=== PATIENT | male | born 1945 | race Caucasian/White ===

== ENCOUNTER 2021-08-07 07:06 | Day surgery (SDC) | payer MEDICARE, BC, SELFPAY ==
[2021-08-07] MEDS: KETOROLAC OPHTH 0.5% 1 DROP EYE-LEFT ×3 (07:25→07:38)
[2021-08-07] MEDS: TETRACAINE 0.5% OPHTH 1 DROP EYE-LEFT ×2 (07:26→07:35)
[2021-08-07] MEDS: ETHYL CHLORIDE 116 ML SPRAY 1 APPLIC TOPICAL (07:40)
[2021-08-07] MEDS: SODIUM CHLORIDE 0.9 % (FLUSH) 10 ML SYRINGE IVF (07:40)
[2021-08-07 07:42] VITALS: BP 139/69; PULSE 56; RESP 16; TEMP 36.4; O2SAT 95; BMI 25.2
--- NOTE | 2021-08-07 07:57 | SUR.PREOP ---
0715: The eye drops brought by the patient (Ketorolac and Prednisolone) are examined and I have determined they are labeled by the patient's pharmacy for this patient as prescribed by the surgeon. The bottles are intact, recently obtained and appear to be correct.
[2021-08-07] MEDS: TETRACAINE 0.5% OPHTH 2 DROP EYE-LEFT (08:02)
[2021-08-07] MEDS: BALANCED SALT IRRIG SOLN 15 ML EYE-LEFT (08:02)
--- NOTE | 2021-08-07 08:58 | W.ANESCHARGE ---
Anesthesia Charges Start Date/Time Anesthesia Start Date: 08/07/21 Anesthesia Start Time: 08:08 Stop Date/Time Anesthesia Stop Date: 08/07/21 Anesthesia Stop Time: 08:55 Summary Emergency: No Extremes of Age: Over 69-CPT 43576
[2021-08-07 09:00] VITALS: BP 147/74; PULSE 57; RESP 16; TEMP 36.5
--- NOTE | 2021-08-07 10:23 | W.ANESCHARGE ---
Anesthesia Charges Start Date/Time Anesthesia Start Date: 08/07/21 Anesthesia Start Time: 08:08 Stop Date/Time Anesthesia Stop Date: 08/07/21 Anesthesia Stop Time: 08:55 Summary Emergency: No Extremes of Age: Over 69-CPT 66970
--- NOTE | 2021-08-07 15:32 | PM.PROC ---
Procedure Note Will [facility] bill your pro fee for this procedure?: Yes Procedure: SURGEON: Marcy San MD PREOPERATIVE DIAGNOSIS: 1. Nuclear sclerotic cataract, left eye. 2. Miosis, left eye. POSTOPERATIVE DIAGNOSIS: 1. Nuclear sclerotic cataract, left eye. 2. Miosis, left eye. NAME OF OPERATION: Phacoemulsification of cataract with posterior chamber intraocular lens implantation in the left eye with pupilloplasty. ANESTHESIA: Topical. ESTIMATED BLOOD LOSS: Less than 2 cc. COMPLICATIONS: None. PATHOLOGY SPECIMEN: None. INDICATIONS: See consult note for details. The risks, benefits and alternatives of the procedure were explained to the patient, who elected to proceed and signed informed consent to do so. PROCEDURE: The patient was brought to the pre-holding area where the left eye was identified as the operative eye. I placed my initials above this eye. The patient received two sets of eye drops every five minutes consisting of 0.5% tetracaine, 1% cyclopentolate, 2.5% phenylephrine, and 0.5% ketorolac. The patient was then brought to the operating room where the left eye was again identified as the operative eye. The eye was prepped with Betadine and draped in the usual sterile ophthalmic fashion. A #15 super-sharp blade was used to create a paracentesis site. 1% non-preserved intracameral lidocaine was injected into the anterior chamber. Viscoat was injected into the anterior chamber. A 2.4 mm keratome was used to create a three-plane self-sealing incision 1 mm anterior to the temporal limbus. A #15 super-sharp blade was used to create four additional paracentesis sites. Four Grieshaber iris hooks were placed in order to stretch the iris. A cystotome was used to create an anterior capsular leaflet. The Utrata forceps were used to extend this to form a continuous curvilinear capsulorrhexis. Hydrodissection was performed. The cataract was removed with phacoemulsification using the [id number] technique. The irrigation and aspiration tip was used to remove the remaining cortex. Healon was injected into the capsular bag. An LU ZCB00 intraocular lens of 23.0 diopters was injected into the capsular bag. The four Grieshaber iris hooks were removed. The irrigation and aspiration tip was used to remove the remaining viscoelastic. Miostat was injected into the anterior chamber. Balanced salt solution on a cannula was used to hydrate the wound, and the wound was found to be watertight. The pupil was noted to be round. DISPOSITION: The patient was taken to the recovery room and discharged to home in stable condition. The patient was instructed to call me or go to the emergency department with any sudden change, including dramatic loss of vision, severe pain in the eye or eyebrow region, nausea, or vomiting. The patient will follow up in the clinic tomorrow morning.
--- NOTE | 2021-08-20 15:59 | SUR.PREOP ---
This RN is closing the chart due to admitting RN out for extended period. End time based on patient time into OR.
== END 2021-08-07 09:31 | disposition home or self-care (01) ==
PROVIDERS: PCP Family Medicine; Visit Provider Ophthalmology
PROC: (CPT 66982; principal; 2021-08-07 07:00)
DX: H25.12 Age-related nuclear cataract, left eye (principal); H57.03 Miosis
CPT/HCPCS: 66982; 142; 99100; A9270; J2250; J3010; V2632

== ENCOUNTER 2021-08-21 06:51 | Day surgery (SDC) | payer MEDICARE, BC, SELFPAY ==
[2021-08-21] MEDS: TETRACAINE 0.5% OPHTH 1 DROP EYE-RIGHT ×2 (07:00→07:18)
[2021-08-21] MEDS: KETOROLAC OPHTH 0.5% 1 DROP EYE-RIGHT ×3 (07:05→07:30)
[2021-08-21 07:25] VITALS: BMI 25.2
[2021-08-21 07:29] VITALS: BP 141/70; PULSE 53; RESP 16; TEMP 36.3
[2021-08-21] MEDS: BALANCED SALT IRRIG SOLN 15 ML EYE-RIGHT (08:18)
[2021-08-21] MEDS: TETRACAINE 0.5% OPHTH 2 DROP EYE-RIGHT (08:19)
[2021-08-21 08:51] VITALS: BP 186/89; PULSE 60; RESP 16; TEMP 36.3; O2SAT 96
--- NOTE | 2021-08-21 08:53 | W.ANESCHARGE ---
Anesthesia Charges Start Date/Time Anesthesia Start Date: 08/21/21 Anesthesia Start Time: 08:04 Stop Date/Time Anesthesia Stop Date: 08/21/21 Anesthesia Stop Time: 08:51 Summary Emergency: No Extremes of Age: Over 69-CPT 38466
--- NOTE | 2021-08-21 09:02 | SUR.PREOP ---
The eye drops brought by the patient (Ketorolac and Prednisolone) are examined and I have determined they are labeled by the patient's pharmacy for this patient as prescribed by the surgeon. The bottles are intact, recently obtained and appear to be correct.
--- NOTE | 2021-08-21 10:02 | W.ANESCHARGE ---
Anesthesia Charges Start Date/Time Anesthesia Start Date: 08/21/21 Anesthesia Start Time: 08:04 Stop Date/Time Anesthesia Stop Date: 08/21/21 Anesthesia Stop Time: 08:51 Summary Emergency: No Extremes of Age: Over 69-CPT 08521
--- NOTE | 2021-08-21 12:23 | PM.PROC ---
Procedure Note Will [facility] bill your pro fee for this procedure?: Yes Procedure Description: SURGEON: Marcy San MD PREOPERATIVE DIAGNOSIS: 1. Nuclear sclerotic cataract, right eye. 2. Miosis, right eye. POSTOPERATIVE DIAGNOSIS: 1. Nuclear sclerotic cataract, right eye. 2. Miosis, right eye. NAME OF OPERATION: Phacoemulsification of cataract with posterior chamber intraocular lens implantation in the right eye with pupilloplasty. ANESTHESIA: Topical. ESTIMATED BLOOD LOSS: Less than 2 cc. COMPLICATIONS: None. PATHOLOGY SPECIMEN: None. INDICATIONS: See consult note for details. The risks, benefits and alternatives of the procedure were explained to the patient, who elected to proceed and signed informed consent to do so. PROCEDURE: The patient was brought to the pre-holding area where the right eye was identified as the operative eye. I placed my initials above this eye. The patient received eye drops consisting of 0.5% tetracaine, 1% tropicamide, 10% phenylephrine, and 0.5% ketorolac. The patient was then brought to the operating room where the right eye was again identified as the operative eye. The eye was prepped with Betadine and draped in the usual sterile ophthalmic fashion. A #15 super-sharp blade was used to create a paracentesis site. 1% non-preserved intracameral lidocaine was injected into the anterior chamber. Endocoat was injected into the anterior chamber. A 2.4 mm keratome was used to create a three-plane self-sealing incision 1 mm anterior to the temporal limbus. A #15 super-sharp blade was used to create four additional paracentesis sites. Four Grieshaber iris hooks were placed in order to stretch the iris. A cystotome was used to create an anterior capsular leaflet. The Utrata forceps were used to extend this to form a continuous curvilinear capsulorrhexis. Hydrodissection was performed. The cataract was removed with phacoemulsification using the [id number] technique. The irrigation and aspiration tip was used to remove the remaining cortex. Healon was injected into the capsular bag. An LU ZCB00 intraocular lens of 23.5 diopters was injected into the capsular bag. The four Grieshaber iris hooks were removed. The irrigation and aspiration tip was used to remove the remaining viscoelastic. Miostat was injected into the anterior chamber. Balanced salt solution on a cannula was used to hydrate the wound, and the wound was found to be watertight. The pupil was noted to be round. DISPOSITION: The patient was taken to the recovery room and discharged to home in stable condition. The patient was instructed to call me or go to the emergency department with any sudden change, including dramatic loss of vision, severe pain in the eye or eyebrow region, nausea, or vomiting. The patient will follow up in the clinic tomorrow morning. Surgeon: Marcy San MD
== END 2021-08-21 09:15 | disposition home or self-care (01) ==
PROVIDERS: PCP Family Medicine; Visit Provider Ophthalmology
PROC: (CPT 66982; principal; 2021-08-21 06:45)
DX: H25.11 Age-related nuclear cataract, right eye (principal); H57.03 Miosis
CPT/HCPCS: 66982; 00142; 99100; A9270; J2250; J3010; V2632

== ENCOUNTER 2021-10-18 13:00 | Outpatient (RCR) | payer MEDICARE, BC, SELFPAY ==
--- NOTE | 2021-11-06 12:50 | URNOTE ---
Request received for authorization for leuprolide ([id number]). Prior authorization is not required as services are based on medical necessity and follow Medicare guidelines.
== END 2022-01-07 14:34 | disposition home or self-care (01) ==
PROVIDERS: PCP Family Medicine; Referring Provider Family Medicine; Visit Provider Family Medicine
DX: M54.50 Low back pain, unspecified (principal); M25.552 Pain in left hip; Z51.89 Encounter for other specified aftercare
CPT/HCPCS: 97110; 97140; 97161; 97162

== ENCOUNTER 2021-11-13 11:24 | Outpatient (RCR) | payer MEDICARE, BC, SELFPAY | END 2022-05-12 23:59 | disposition home or self-care (01) | LOC: CCIC 11:24 | PROVIDERS: PCP Family Medicine; Referring Provider Family Medicine; Visit Provider Clinical Nurse Specialist | DX: Z51.11 Encounter for antineoplastic chemotherapy (principal); C61 Malignant neoplasm of prostate | CPT/HCPCS: 96401; J9217 ==

== ENCOUNTER 2022-08-27 20:43 | Emergency (ER) | payer MEDICARE, BC, SELFPAY ==
[2022-08-27] VITALS (16 sets, daily range): BP systolic 135–157; BP diastolic 70–78; PULSE 67–96; RESP 16; TEMP 36.7; O2SAT 91–96; BMI 24.9
--- NOTE | 2022-08-27 21:03 | ED.GENADULT ---
HPI - General Adult General Chief complaint: Allergic Reaction Stated complaint: Suspected reaction to amoxicillin--swollen tongue Time Seen by Provider: 08/27/22 20:53 History of Present Illness HPI narrative: 1600 first dose amoxicillin for ear infx. 0 itchy hands. 1999 - throat and tongyue swelling. does take lisinopril . pt able to swallow own spit, states no trouble breathing. talking clear 76-year-old man presenting to the emergency department with concern of allergic reaction. Does have a long history apparently of sinus disease but is not having any sinus pain. He actually has not had any more ear pain as of last night but still was feeling plugged and went to a clinic appointment today. Thought maybe it might be wax buildup. Was diagnosed with a left-sided otitis media per their report and initiated on amoxicillin. Had his 1st dose of amoxicillin at around 5 hours ago. Within the hour started to have itchy hands and then sensation of throat and tongue swelling in particular. Does take lisinopril. Able to maintain his own secretions. He is not having difficulty breathing. When I walk in the room I note some affected speech which says has definitely improved over the last hour. She did give him prior to arrival 50 mg of diphenhydramine. Was not known to have a penicillin or amoxicillin allergy but not sure has received amoxicillin in the past Related Data Home Medications Medication Instructions Recorded Confirmed PSYILLIUM 1 tsp PO DAILY PRN 08/06/21 11/13/21 acetaminophen 500 mg tablet 1,000 mg PO Q8H PRN 08/06/21 11/13/21 (Tylenol Extra Strength) amlodipine 10 mg tablet 10 mg PO DAILY 08/06/21 11/13/21 aspirin 81 mg tablet,delayed 81 mg PO DAILY 08/06/21 11/13/21 release atorvastatin 20 mg tablet (Lipitor) 20 mg PO DAILY 08/06/21 11/13/21 bupropion HCl 300 mg 24 hr tablet, 300 mg PO QAM 08/06/21 11/13/21 extended release calcium polycarbophil 625 mg 625 mg PO DAILY 08/06/21 11/13/21 tablet (Fiber (calcium polycarbophil)) coenzyme Q10 100 mg capsule 200 mg PO DAILY 08/06/21 11/13/21 (CoQ-10) duloxetine 60 mg capsule,delayed 60 mg PO DAILY 08/06/21 11/13/21 release furosemide 20 mg tablet 20 mg PO QAM 08/06/21 11/13/21 lansoprazole 30 mg capsule,delayed 30 mg PO .COMPLEX 08/06/21 11/13/21 release lisinopril 40 mg tablet 40 mg PO DAILY 08/06/21 11/13/21 lorazepam 1 mg tablet 1 mg PO Q4H PRN 08/06/21 11/13/21 mirabegron 25 mg tablet,extended 25 mg PO DAILY 08/06/21 11/13/21 release 24 hr naproxen 250 mg tablet 250 mg PO Q12H 08/06/21 11/13/21 nitroglycerin 0.4 mg sublingual 0.4 mg sublingual Q5M PRN 08/06/21 11/13/21 tablet polyethylene glycol 3350 17 17 g PO DAILY 08/06/21 11/13/21 gram/dose oral powder (Miralax) potassium citrate 10 mEq (1,080 10 meq PO BID 08/06/21 11/13/21 mg) tablet,extended release (Urocit-K 10) sildenafil 25 mg tablet 25 - 50 mg PO DAILY PRN 08/06/21 11/13/21 trazodone 50 mg tablet 50 mg PO HS PRN sleep 08/06/21 11/13/21 bicalutamide 50 mg tablet mg 11/13/21 Previous Rx's Medication Instructions Recorded prednisone 20 mg tablet 20 mg PO BID 3 days #6 tabs 08/27/22 Allergies Allergy/AdvReac Type Severity Reaction Status Date / Time amoxicillin Allergy Intermediate Swelling Verified 08/27/22 23:17 of Lip/Tongue/Throat bee venom protein (honey bee) Allergy Unknown Verified 11/13/21 11:38 Review of Systems Status of ROS: Reports: 6 or more systems reviewed and unremarkable except as noted in History and below [facility] Medical History Atypical syncope ?R55 - Syncope and collapse (ICD-10) Fracture, thoracic vertebra, compression ?S22.000A - Wedge compression fracture of unspecified thoracic vertebra, initial encounter for closed fracture (ICD-10) H/O placement of stent in anterior descending branch of left coronary artery ?Z95.5 - Presence of coronary angioplasty implant and graft (ICD-10) Left lower quadrant abdominal mass ?R19.04 - Left lower quadrant abdominal swelling, mass and lump (ICD-10) Left lower quadrant pain ?R10.32 - Left lower quadrant pain (ICD-10) Fracture of unspecified part of neck of left femur, initial encounter for closed fracture ?S72.002A - Fracture of unspecified part of neck of left femur, initial encounter for closed fracture (ICD-10) Bradycardia ?R00.1 - Bradycardia, unspecified (ICD-10) Marijuana use ?F12.90 - Cannabis use, unspecified, uncomplicated (ICD-10) Generalized anxiety disorder ?F41.1 - Generalized anxiety disorder (ICD-10) Dyslipidemia ?E78.5 - Hyperlipidemia, unspecified (ICD-10) ABLA (acute blood loss anemia) ?D62 - Acute posthemorrhagic anemia (ICD-10) Psychophysiologic insomnia ?F51.04 - Psychophysiologic insomnia (ICD-10) Social anxiety disorder ?F40.10 - Social phobia, unspecified (ICD-10) Depression, major, recurrent, moderate ?F33.1 - Major depressive disorder, recurrent, moderate (ICD-10) Arteriosclerosis of coronary artery ?I25.10 - Atherosclerotic heart disease of [place] coronary artery without angina pectoris (ICD-10) Hypertension ?I10 - Essential (primary) hypertension (ICD-10) Other specified disorders of nose and nasal sinuses ?J34.89 - Other specified disorders of nose and nasal sinuses (ICD-10) Other abnormal glucose ?R73.09 - Other abnormal glucose (ICD-10) Hyperlipidemia ?E78.5 - Hyperlipidemia, unspecified (ICD-10) Gout, unspecified ?M10.9 - Gout, unspecified (ICD-10) Gastro-esophageal reflux ?K21.9 - Gastro-esophageal reflux disease without esophagitis (ICD-10) Encounter for immunization ?Z23 - Encounter for immunization (ICD-10) Diverticulosis of large intestine without perforation or abscess without bleeding ?K57.30 - Diverticulosis of large intestine without perforation or abscess without bleeding (ICD-10) Surgical History H/O repair of right rotator cuff ?Z98.890 - Other specified postprocedural states (ICD-10) History of left hip replacement ?Z96.642 - Presence of left artificial hip joint (ICD-10) Hx of anterior cruciate ligament tear reconstruction ?Z98.890 - Other specified postprocedural states (ICD-10) H/O resection of small bowel ?Z90.49 - Acquired absence of other specified parts of digestive tract (ICD-10) History of coronary angioplasty ?Z98.61 - Coronary angioplasty status (ICD-10) Social History Smoking Status: Former smoker What tobacco products do you use: cigarettes Smoking quit date/years: >15 years ago How often do you have a drink containing alcohol: monthly or less How many standard drinks containing alcohol do you have on a typical day: 1 or 2 How often do you have six or more drinks on one occasion: Never AUDIT-C Alcohol total score: 1 Non-prescribed substance use: marijuana (any form) Non-prescribed substance use details: DAILY Caffeine: Yes Exam Narrative: Exam Narrative: Pleasant. NAD. Affected speech when I 1st see him. Almost sounds like a lateral lisp or like the tongue is thick frankly. Otherwise is breathing easily. There is no stridor. Lungs appear to be clear. Oropharynx is moist mild erythema in the soft palate with a thick tongue-he does deny that he has sleep apnea. It is a little difficult initially to visualized soft palate. Is no facial swelling erythema or tenderness though he does sound congested. There is no reproducible sikh pain or appreciable swelling or redness. No TMJ area pain. The left TM has some central erythema but otherwise the TM is pearly sung and transparent. I do not appreciate distension there might be a little retraction now. The right TM is also normal. More cerumen in the canal but I do not appreciate inflammatory changes. No pain to movement of the pinna or tragus bilaterally. Const: Vital Signs, click to edit/add: Vital Signs - 24 hr 08/27/22 20:54 08/27/22 21:11 Temperature 98.1 F Pulse Rate 77 Pulse Rate [Left P ulse Oximeter] 67 Respiratory Rate 16 Blood Pressure [Ri ght Upper Arm] 157/78 H Pulse Oximetry 96 93 Oxygen Delivery Me thod Room Air Documenting provider has reviewed patient's vital signs: yes Course Vital Signs Vital signs: Initial Vital Signs Temperature 98.1 F 08/27/22 20:54 Temperature Source Temporal Artery Scan 08/27/22 20:54 Pulse Rate 67 08/27/22 20:54 Respiratory Rate 16 08/27/22 20:54 Blood Pressure 157/78 H 08/27/22 20:54 Blood Pressure Mean 104 08/27/22 20:54 Blood Pressure Position Sitting 08/27/22 20:54 Pulse Oximetry 96 08/27/22 20:54 Oxygen Delivery Method Room Air 08/27/22 20:54 Vital Signs Temperature 98.1 F 08/27/22 20:54 Pulse Rate 67 08/27/22 20:54 Respiratory Rate 16 08/27/22 20:54 Blood Pressure 157/78 H 08/27/22 20:54 Pulse Oximetry 96 08/27/22 20:54 Oxygen Delivery Method Room Air 08/27/22 20:54 Temperature 98.1 F 08/27/22 20:54 Pulse Rate 73 08/27/22 23:15 Respiratory Rate 16 08/27/22 20:54 Blood Pressure 135/76 08/27/22 23:02 Pulse Oximetry 93 08/27/22 23:15 Oxygen Delivery Method Room Air 08/27/22 20:54 Medical Decision Making MDM Narrative Medical decision making narrative: Does not seem to be too affected at this time. Does not seem to be a traumatic event. I do feel there is some affect perhaps in throat and tongue that would benefit from monitoring and fluids and steroids. I do not see need for amoxicillin at this time given no facial pain or evidence of an ear infection. IV was established given a L normal saline and Solu-Medrol. Monitored the in the emergency department with general improvement of his symptoms. See patient discharge plan Discharge Plan Discharge Clinical Impression: Sinus congestion, Allergic reaction Patient Disposition: Home w/ Parent or Adult Condition: Improved Instructions: General Allergic Reaction (ED) Additional Instructions: Stay well-hydrated. If tomorrow you're still feeling a little unwell with similar symptoms, maybe having some itch, I would then start the 3 day course of prednisone waiting for you at pharmacy. And then for breakthrough symptoms can take diphenhydramine but if have any sensation of difficulty breathing or swallowing I would then return to the emergency department. At this time I do not see indication for the amoxicillin and I would discontinue this. Might want to get formal testing to verify allergy. Nasal saline rinses with the Neti pot might be helpful for you long-term if you have not already considered this as well as nasal steroid spray which is also available [id number]. Pseudoephedrine decongestion in longer-acting formulations, specifically 12 hour, helps me when I am congested. Prescriptions: New prednisone 20 mg tablet 20 mg PO BID 3 Days Qty: 6 1RF No Action acetaminophen [Tylenol Extra Strength] 500 mg tablet 1,000 mg PO Q8H PRN amlodipine 10 mg tablet 10 mg PO DAILY aspirin 81 mg tablet,delayed release (DR/EC) 81 mg PO DAILY atorvastatin [Lipitor] 20 mg tablet 20 mg PO DAILY bupropion HCl 300 mg tablet extended release 24 hr 300 mg PO QAM calcium polycarbophil [Fiber (calcium polycarbophil)] 625 mg tablet 625 mg PO DAILY duloxetine 60 mg capsule,delayed release(DR/EC) 60 mg PO DAILY Patient Comments: dose increased to 90 mg, meeting with psychiatry to discuss dose increase. furosemide 20 mg tablet 20 mg PO QAM lansoprazole 30 mg capsule,delayed release(DR/EC) 30 mg PO .COMPLEX Rx Instructions: 30 mg PO BEFORE MEAL; lisinopril 40 mg tablet 40 mg PO DAILY lorazepam 1 mg tablet 1 mg PO Q4H PRN Hold Instructions: uses for flying mirabegron 25 mg tablet extended release 24 hr 25 mg PO DAILY naproxen 250 mg tablet 250 mg PO Q12H Hold Instructions: blood pressure issues nitroglycerin 0.4 mg tablet, sublingual 0.4 mg sublingual Q5M PRN Hold Instructions: Order Change Patient Comments: hasn't needed Rx Instructions: do not exceed 3 doses per episode polyethylene glycol 3350 [Miralax] 17 gram/dose powder 17 g PO DAILY potassium citrate [Urocit-K 10] 10 mEq (1,080 mg) tablet extended release 10 meq PO BID PSYILLIUM powder 1 tsp PO DAILY PRN sildenafil 25 mg tablet 25 - 50 mg PO DAILY PRN Rx Instructions: administer 30 minutes to 4 hours before activity trazodone 50 mg tablet 50 mg PO HS PRN (Reason: sleep) Patient Comments: increased to 100 mg, will discuss dose change with psychiatry. coenzyme Q10 [CoQ-10] 100 mg capsule 200 mg PO DAILY bicalutamide 50 mg tablet Patient Comments: PLEASE SEE ATTACHED FOR DETAILED DIRECTIONS Rx Instructions: take at the same time daily with food for 21 days. One week prior to injection and two weeks after injection. Follow Up/Referrals: Stephany Parker MD [Primary Care Provider] - Stand Alone Forms: [employer] Info Instructions
[2022-08-27] MEDS: 0.9 % SODIUM CHLORIDE 1000 ml 1,000 ML IV (21:42)
[2022-08-27] MEDS: METHYLPREDNISOLONE SOD SUCC 62.5 MG/ML (125) 80 MG IVP (21:49)
== END 2022-08-27 23:26 | disposition home or self-care (01) ==
PROVIDERS: Emergency Provider Family Medicine; PCP Family Medicine
DX: R09.81 Nasal congestion (principal); T36.0X5A Adverse effect of penicillins, initial encounter
CPT/HCPCS: 96374; 97110; 97140; 99283; 99284; J2930; J7030

== ENCOUNTER 2022-10-29 11:00 | Outpatient (RCR) | payer MEDICARE, BC, SELFPAY ==
[2022-05-15 13:59] VITALS: BP 137/68; PULSE 60; RESP 16; TEMP 36.1; O2SAT 98
--- NOTE | 2022-10-22 10:41 | ONC.NURNOTE ---
Received phone call from radiation oncology stating that patient's injection to be held next week due to patient preference. Asked that note please be sent to [facility].
[2022-10-29 12:07] LABS: PSA Diagnostic* 0.07 ng/mL (0.10-4.00)
[2022-10-31 00:29] LABS: Testosterone, Adult Male <3 ng/dL (300-720)
== END 2022-11-11 23:59 | disposition home or self-care (01) ==
LOC: CCIC 11:00
PROVIDERS: PCP Family Medicine; Referring Provider Family Medicine; Visit Provider Clinical Nurse Specialist
DX: C61 Malignant neoplasm of prostate (principal)
CPT/HCPCS: 36415; 84153; 84403; 96401; J9217

== ENCOUNTER 2022-12-01 13:00 | Outpatient (RCR) | payer MEDICARE, BC, SELFPAY | END 2023-03-31 23:59 | disposition home or self-care (01) | PROVIDERS: PCP Family Medicine; Visit Provider Internal Medicine | DX: C61 Malignant neoplasm of prostate (principal); N39.498 Other specified urinary incontinence; R27.8 Other lack of coordination; Z87.19 Personal history of other diseases of the digestive system; Z51.89 Encounter for other specified aftercare | CPT/HCPCS: 97110; 97162; 97535 ==

== ENCOUNTER 2022-12-02 10:30 | Outpatient (RCR) | payer MEDICARE, BC, SELFPAY | END 2022-12-04 08:26 | disposition home or self-care (01) | PROVIDERS: PCP Family Medicine; Visit Provider Family Medicine | DX: M54.50 Low back pain, unspecified (principal); G89.29 Other chronic pain; M25.552 Pain in left hip; R53.1 Weakness; M79.652 Pain in left thigh; Z51.89 Encounter for other specified aftercare | CPT/HCPCS: 97110; 97112; 97140; 97162 ==

== ENCOUNTER 2023-11-05 11:00 | Outpatient (RCR) | payer MEDICARE, BC, SELFPAY | END 2024-03-04 23:59 | disposition home or self-care (01) | PROVIDERS: PCP Family Medicine; Visit Provider Urology | DX: N39.46 Mixed incontinence (principal); R27.8 Other lack of coordination; R35.1 Nocturia; Z48.816 Encounter for surgical aftercare following surgery on the genitourinary system | CPT/HCPCS: 97110; 97140; 97162; 97535 ==

== ENCOUNTER 2023-11-11 11:00 | Outpatient (RCR) | payer MEDICARE, BC, SELFPAY | END 2023-11-26 11:33 | disposition home or self-care (01) | PROVIDERS: PCP Family Medicine; Visit Provider Family Medicine | DX: M54.9 Dorsalgia, unspecified (principal); M25.552 Pain in left hip; R26.81 Unsteadiness on feet; Z51.89 Encounter for other specified aftercare | CPT/HCPCS: 97110; 97140; 97162 ==

== ENCOUNTER 2024-06-16 12:46 | Outpatient (CLI) | payer MEDICARE, BC, SELFPAY | END 2024-06-16 12:47 | disposition home or self-care (01) | LOC: WOUND 12:46 | PROVIDERS: PCP Family Medicine; Visit Provider Nurse Practitioner Family | DX: N30.40 Irradiation cystitis without hematuria (principal); C61 Malignant neoplasm of prostate; Y84.2 Radiological procedure and radiotherapy as the cause of abnormal reaction of the patient, or of later complication, without mention of misadventure at the time of the procedure | CPT/HCPCS: G0463 ==

== ENCOUNTER 2024-07-05 10:48 | Outpatient (CLI) | payer MEDICARE, BC, SELFPAY | END 2024-07-05 10:49 | disposition home or self-care (01) | PROVIDERS: PCP Family Medicine; Visit Provider Family Medicine | DX: N30.40 Irradiation cystitis without hematuria (principal); C61 Malignant neoplasm of prostate; Y84.2 Radiological procedure and radiotherapy as the cause of abnormal reaction of the patient, or of later complication, without mention of misadventure at the time of the procedure | CPT/HCPCS: G0463 ==

== ENCOUNTER 2024-07-08 11:00 | Outpatient (RCR) | payer MEDICARE, BC, SELFPAY | END 2024-07-09 23:59 | disposition home or self-care (01) | LOC: WOUND 11:00 | PROVIDERS: PCP Family Medicine; Visit Provider Nurse Practitioner Family | DX: N30.40 Irradiation cystitis without hematuria (principal); C61 Malignant neoplasm of prostate; H92.02 Otalgia, left ear; Y84.2 Radiological procedure and radiotherapy as the cause of abnormal reaction of the patient, or of later complication, without mention of misadventure at the time of the procedure | CPT/HCPCS: G0277 ==

== ENCOUNTER 2024-07-21 08:26 | Outpatient (CLI) | payer MEDICARE, BC, SELFPAY | END 2024-07-21 08:27 | disposition home or self-care (01) | LOC: WOUND 08:27 | PROVIDERS: PCP Family Medicine; Visit Provider Nurse Practitioner Family | DX: N30.40 Irradiation cystitis without hematuria (principal); C61 Malignant neoplasm of prostate; Y84.2 Radiological procedure and radiotherapy as the cause of abnormal reaction of the patient, or of later complication, without mention of misadventure at the time of the procedure | CPT/HCPCS: G0277; G0463 ==

== ENCOUNTER 2024-08-04 08:20 | Outpatient (CLI) | payer MEDICARE, BC, SELFPAY | END 2024-08-04 08:21 | disposition home or self-care (01) | LOC: WOUND 08:20 | PROVIDERS: PCP Family Medicine; Visit Provider Nurse Practitioner Family | DX: N30.40 Irradiation cystitis without hematuria (principal); C61 Malignant neoplasm of prostate; Y84.2 Radiological procedure and radiotherapy as the cause of abnormal reaction of the patient, or of later complication, without mention of misadventure at the time of the procedure | CPT/HCPCS: G0277; G0463 ==

== ENCOUNTER 2024-08-08 08:30 | Outpatient (RCR) | payer MEDICARE, BC, SELFPAY | END 2024-08-08 23:59 | disposition home or self-care (01) | LOC: WOUND 08:30 | PROVIDERS: PCP Family Medicine; Visit Provider Nurse Practitioner Family | DX: N30.40 Irradiation cystitis without hematuria (principal); C61 Malignant neoplasm of prostate; Y84.2 Radiological procedure and radiotherapy as the cause of abnormal reaction of the patient, or of later complication, without mention of misadventure at the time of the procedure | CPT/HCPCS: G0277 ==

== ENCOUNTER 2024-09-01 08:28 | Outpatient (CLI) | payer MEDICARE, BC, SELFPAY | END 2024-09-01 08:29 | disposition home or self-care (01) | LOC: WOUND 08:28 | PROVIDERS: PCP Family Medicine; Visit Provider Nurse Practitioner Family | DX: N30.40 Irradiation cystitis without hematuria (principal); C61 Malignant neoplasm of prostate; Y84.2 Radiological procedure and radiotherapy as the cause of abnormal reaction of the patient, or of later complication, without mention of misadventure at the time of the procedure | CPT/HCPCS: G0277; G0463 ==

== ENCOUNTER 2024-09-02 08:30 | Outpatient (RCR) | payer MEDICARE, BC, SELFPAY | END 2024-09-08 23:59 | disposition home or self-care (01) | LOC: WOUND 08:30 | PROVIDERS: PCP Family Medicine; Visit Provider Physician Assistant | DX: N30.40 Irradiation cystitis without hematuria (principal); C61 Malignant neoplasm of prostate; Y84.2 Radiological procedure and radiotherapy as the cause of abnormal reaction of the patient, or of later complication, without mention of misadventure at the time of the procedure | CPT/HCPCS: 97110; 97112; G0277 ==

== ENCOUNTER 2024-09-19 13:37 | Outpatient (REF) | payer MEDICARE, BC, SELFPAY ==
[2024-09-19 16:47] LABS: PSA Diagnostic* 0.19 ng/mL (0.10-4.00)
--- OUTSIDE RECORDS SUMMARY | 2024-09-20 00:14 | XMS_ITS ---
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 Problem Noted Date Diagnosed Date Primary Malignant Neoplasm Of Prostate Cancer Staging:Clinical stage from 09/05/2021:Stage IIIC(cT1c, cN0, cM0, PSA: 4.7, Grade Group: 5) - Unsigned Current Treatment and Therapy Plans No current plan information found. Past Treatment and Therapy Plans Hem/Onc Therapy Plan 1 Plan Name Start Date Discontinue Date Treatment Medications Discontinue Reason Plan Provider Leuprolide Acetate Every 24 Weeks 10/31/2022 11/04/2022 No medications scheduled. Not Tolerated Frances Najera P.A.-C., M.S. LEUPROLIDE ACETATE EVERY 24 WEEKS 11/13/2021 08/19/2022 No medications scheduled. Therapy Complete Frances Najera P.A.-C., M.S. Past Radiation Episodes * IMRT: ProstateOverview* First Treatment Date Last Treatment Date Treatment Site Technique Goal Episode Provider 06/30/2022 07/29/2022 Prostate IMRT Curative * Linked Problems Primary Malignant Neoplasm O f Prostate Treatment Courses* Course 1xProstate 06/30/2022 - 07/29/2022 Treatment Period Fraction Dose Fractions Total Dose Plans Planned [id number] 06/30/2022 - 07/29/2022 300 cGy 6 ,000 cGy Reference Points Delivered [id number] 06/30/2022 - 07/29/2022 6,000 cGy
--- OUTSIDE RECORDS SUMMARY | 2024-09-20 00:14 | XMS_ITS | Patient Health Record ---
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 Name Role Phone None, None Primary Care Provider Kristopher Melendez [phone] Reason For Referral No Information Medications Medication SIG (Take, Route, Frequency, Duration) Notes Start Date End Date Status Atorvastatin Calcium 20 MG 1 tablet Oral ly Once a day Active Aspirin 81 MG 1 tablet Orally Once a day Active Carvedilol 6.25 MG 1 Orally B.i.d.; Duration: 90 days Active Venlafaxine HCl 75 MG 1 tablet with food Orally Once a day Active Gabapentin 100 MG 2 capsule Orally Onc e a day Active Lansoprazole 15 MG 1 capsule Orally Onc e a day Active levETIRAcetam 500 MG 1 tablet Orally Twi ce a day Active Melatonin 5 MG 1 tablet at bedtime as needed with food Orally Once a day Active amLODIPine Besylate 10 MG 1 tablet Orall y Once a day Active Acetaminophen 500 MG 2 capsules as neede d Orally every 6 hrs Active Lisinopril 20 MG 1 tablet Orally bid; Duration: 90 days Active Coenzyme Q-10 200 MG 1 capsule with a me al Orally Once a day Active Social History Tobacco Use: Social History Observation Description Date Details (start date - stop date) Former Smoker NA - NA Smoking Question Answer Notes Status: Former Smoker Problems Problem Type SNOMED Code ICD Code Onset Dates Problem Status W/U Status Risk Notes Problem Shortness of breath (042704626) Shortness of breath (R06.02) Active confirmed Problem Essential hypertension (27541734) Essential hypertension (I10) Active confirmed Problem Atherosclerotic heart disease of [place] coronary artery without angina pectoris (119573641792822) Coronary artery disease involving [place] coronary artery of [place] heart without angina pectoris (I25.10) Active confirmed Problem Syncope and collapse (594612303) Syncope, unspecified syncope type (R55) Active confirmed Problem 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 Problem Acute myocardial infarction of lateral wall (disorder) (21443468) Myocardial infarction (lateral wall) (I21.29) Active confirmed Plan Of Treatment Pending Test Test Name Order Date Lexiscan Stress Nuclear MPI 1-day protoc ol 01/12/2017 Holter Monitor 24 Hours 01/12/2017 Insurance Providers Payer Name Payer Address Payer Phone Subscriber Number Group Number Insured Name Patient Relationship to Insured Coverage Start Date Coverage End Date Medicare [address] [place] [phone] [id number] Wiley Christiansen Self - patient is the insured [facility] [address] [place] [address] [id number] Wiley Christiansen Self - patient is the insured Medical (General) History Medical History History ICD Code Hyperlipidemia Hypertension Heart 'attack GERD CAD Pre Diabetes Depression/ Anxiety Surgical History Surgery Date(Month/Year) Bowel Resection
--- OUTSIDE RECORDS SUMMARY | 2024-09-20 00:15 | XMS_ITS | Clinical Summary ---
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 For routine questions regarding patient records, call [phone] during business hours, M-F 8:00 AM - 5:00 PM Central Time. Record requests for emergency care only can be directed to [phone] at any time.[facility] Allergies Active Allergy Reactions Criticality Noted Date Comments Amoxicillin Edema, suggestive of allergic reaction, i.e., lip, tongue, or throat swelling,Anaphylaxis High 09/01/2022 Bee Venom Protein (Honey Bee) Edema (Reselect Reaction) High 10/01/2021 Medications * This document contains information received from the source organization and may not represent a complete record from that organization. multivitamin-Ca -iron-minerals tablet Take 1 tablet by mouth at bedtime. Active acetaminophen (TYLENOL) 500 mg tablet Take 1,000 mg by mouth as needed. 08/05/[address] tablet Take 81 mg by mouth daily. 09/30/2010 Active atorvastatin (LIPITOR) 20 mg tablet Take 20 mg by mouth every morning before breakfast. 06/17/2021 Active lansoprazole (PREVACID) [address] capsule Take 30 mg by mouth every morning before breakfast. 06/17/2021 Active lisinopriL (PRINIVIL,ZESTR IL) 40 mg tablet Take 1 tablet by mouth daily. 07/01/2021 Active LORazepam (ATIVAN) 1 mg tablet Take 1 mg by mouth as needed. 06/17/2021 Active polyethylene glycol (MIRALAX) 17 gram/dose oral powder Take 17 g by mouth as needed. 06/22/2020 Active coenzyme Q10 (CO Q-10) 200 mg capsule Take 1 capsule by mouth daily. 06/25/2015 Active traZODone (DESYREL) 50 mg tablet Take 1 tablet by mouth at bedtime as needed. 06/17/2021 Active ARIPiprazole (ABILIFY) 5 mg tablet Take 5 mg by mouth at bedtime. 02/10/2022 Active omega 2-dtq-qoc-fish oil 1,000 mg (120 mg-180 mg) capsule Take 1 capsule by mouth daily. 10/28/2021 Active calcium carbonate/vitam in D3 (CALCIUM 500 + D ORAL) Take 2 tablets by mouth daily. 450/400 Active nitroglycerin (NITROSTAT) 0.[address] 0.4 mg under the tongue every 2 (two) hours as needed. 05/19/2023 Active psyllium seed, with sugar, (METAMUCIL, SUGAR, ORAL) Take 2 Scoops by mouth daily. 2 TBSP Active amLODIPine (Norvasc) 5 mg tablet Take 5 mg by mouth daily. 05/25/2024 Active furosemide (Lasix) 20 mg tablet Take 20 mg by mouth daily. 05/08/2024 Active pentoxifylline (TRENtal) 400 mg ER tablet Take 1 tablet (400 mg total) by mouth 2 (two) times a day with meals. 200 tablet 2 06/14/2024 Active vitamin E 450 mg (1,000 Unit) capsule Take 1 capsule (450 mg total) by mouth daily. 100 capsule 2 06/14/2024 Active Active Problems Problem Noted Date Diagnosed Date Primary Malignant Neoplasm Of Prostate 2 Cancer Staging:Clinical stage from 09/05/2021:Stage IIIC(cT1c, cN0, cM0, PSA: 4.7, Grade Group: 5) - Unsigned Encounters Date Type Department Care Team Description 08/02/2024 Clinical Communication Department of Urology in [address] [address] O'Chaz, Malika T, M.D. Communication (Wondering if we do PTMS procedure) from Last 3 Months Family History Medical History Relation Name Comments Alcohol abuse Brother 1 Brother Depression Brother 2 Sister Suicide Attempts Brother 3 Brother - Peter Alcohol abuse Brother 4 Brother Depression Brother 5 Sister Suicide Attempts Brother 6 Brother - Peter Depression Daughter 1 Son Depression Daughter 2 Son Diabetes Father 1 Father Stroke Father 1 Father Transient ischemic attack Father 1 Father Diabetes Father 2 Father Stroke Father 2 Father Transient ischemic attack Father 2 Father Arthritis Mother 1 Mother Osteoporosis Mother 1 Mother Arthritis Mother 2 Mother Coronary artery disease Mother 2 Mother Bypa ss surgery Osteoporosis Mother 2 Mother Depression Sister 1 Brother Depression Sister 2 Brother Depression Son 1 Daughter Depression Son 2 Daughter Relation Name Status Comments Brother 1 Brother Brother 2 Sister Brother 3 Brother - Peter Brother 4 Brother Alive Brother 5 Sister Alive Brother 6 Brother - Peter Alive Daughter 1 Son Daughter 2 Son Alive Father 1 Father Father 2 Father Alive Mother 1 Mother Mother 2 Mother Sister 1 Brother Sister 2 Brother Alive Son 1 Daughter Son 2 Daughter Alive Social History Tobacco Use Types Packs/Day Years Used Date Smoking Tobacco: Former Cigarettes 1 10 0 02/09/1969 - 02/09/1979 Pipe Smokeless Tobacco: Never Tobacco Cessation:Counseling Given: Not Answered Comments:I don't smoke tobacco but I do smoke marijuana Alcohol Use Standard Drinks/Week Comments Yes 2 (1 standard drink = 0.6 oz pur e alcohol) Occasionally a [employer] [facility] [employer] Answer Date Recorded In the past 12 months has e [employer], gas, oil, or water [employer] threatened to shut off services in your home? No 06/14/2023 Humiliation, Afraid, Rape, and Kick questionnair e Answer Date Recorded Within the last year, have y ou been afraid of your partner or ex-partner? No 05/12/2022 Within the last year, have y ou been humiliated or emotionally abused in other ways by your partner or ex-partner? No Within the last year, have y ou been kicked, hit, slapped, or otherwise physically hurt by your partner or ex-partner? No 05/12/2022 Within the last year, have y ou been raped or forced to have any kind of sexual activity by your partner or ex-partner? No 05/12/2022 Hunger Vital Sign Answer Date Recorded Within the past 12 months, y ou worried that your food would run out before you got the money to buy more. Never true 06/14/19 24 Within the past 12 months, t he food you bought just didn't last and you didn't have money to get more. Never true 06/14/2023 PRAPARE - Transportation Answer Date Re corded In the past 12 months, has l ack of transportation kept you from medical appointments or from getting medications? No 06/2023 In the past 12 months, has l ack of transportation kept you from meetings, work, or from getting things needed for daily living? No 06/14/2023 Housing Stability Answer Date Recorded What is your living situation today? I have a [facility] place to live 06/14/2023 Education Answer Date Recorded What is the highest level of school you have completed or the highest degree you have received? Some college, no degree 10/31/2021 Sex and Gender Information Value Date Recorded Sex Assigned at Male 10/31/2021 10:09 AM CDT Legal Sex Male 12:02 PM CDT Gender Identity Male 10/31/2021 10:09 AM CDT Sexual Orientation Straight 10/31/2021 10 :09 AM CDT Last Filed Vital Signs Vital Sign Reading Time Taken Comments Blood Pressure 135/69 06/14/2024 8:58 AM CDT Pulse 58 06/14/2024 8:58 AM CDT Temperature 36.2 C (97.2 F) 06/14/2024 8:58 AM CDT Respiratory Rate 9 06/18/2022 1:19 PM CDT Oxygen Saturation 98% 06/18/2022 1:20 PM CDT Inhaled Oxygen Concentration - - Weight 77.9 kg (171 lb 11.8 oz) 06/14/2024 8:58 AM CDT Height - - Body Mass Index - - Plan of Treatment Upcoming Encounters Date Type Department Care Team (Late st Contact Info) Description 09/23/2024 2:00 PM CDT Appointment Department of Radiation Oncology in [place], [place] [address] [place] [address] Clement Marie M.D. [address] [place] [address] Health Maintenance Due Date Last Done Comments Hepatitis C Screening 1945 Tobacco Cessation counseling 1945 RSV vaccine - (32-36 weeks) or 60+ years (1 - 1-dose 75+ series) 12/18/2019 DTaP,Tdap,and Td Vaccines (3 - Td or Tdap) 10/02/2022 10/02/2012, 12/01/2006 COVID-19 Vaccine ( season) 2023 11/29/2022, 06/24/2022, 11/02/2021, Additional history exists Depression Screening (Annual PHQ-2) 02/10/2024 Fall Risk Screen (Annual) 02/10/2024 Influenza Vaccine (#1) 2024 , 11/12/2022, 11/06/2021, Additional history exists Glucose Test for Med Monitoring 05/20/2025 05/20/2024, 09/28/2023, 07/07/2023, Additional history exists Pneumococcal vaccine (50+ years) Completed 06/19/2014, 10/28/2011 Zoster Vaccines Completed 09/22/2018, 06/09, 12/02/2011 HPV Vaccines Aged Out No longer eligi ble based on patient's age to complete this topic IPV Vaccines Aged Out No longer eligi ble based on patient's age to complete this topic Medical Devices Implanted Type Area Tinning Machine Set Up Operator Device Identifier Shelf Expiration Date Model / Serial / Lot Cardiac Stent Cardiac Stent Heart Hip Implant Hip Implant Left: Hip Marker Tissue [employer] Kv 1x5 - [id number] Implanted:Qty : 4 on 06/18/2022 by aJni Rivera M.D. at [facility] [id number] 08/08/2026 [id number] / / [id number] Insurance [facility] MEDICARE Care Teams Pipeline Inspector Relationship Specialty Start Date End Date Elsewhere, Pcp PCP - General Internal Medicine 05/09/22
--- OUTSIDE RECORDS SUMMARY | 2024-09-20 00:15 | XMS_ITS | Clinical Summary ---
Author Organization [facility]: [facility] Address [address] [place] [address] Care Team Providers Care Kaiako Kura Kaupapa Maori Name Role Phone Emmanuel Palomino MD Unavailable [phone] Stephany Parker MD Primary Care Prov ider Mike GordilloyD, LP Unavailable Allergies Active Allergy Reactions Criticality Noted Date Comments Amoxicillin Throat Swelling/Closing,Anaphyla xis,Edema,Itching,Other - Describe In Comment Field,Tongue Swelling High 08/27/2022 Hymenoptera Allergenic Extract 03/11/2006 Bee Venom Protein (Honey Bee) Edema High 10/01/2021 Venom-Wasp *Unknown 03/11/2006 Medications aspirin enteric coated 81 mg tablet Take 1 tablet by mouth once daily with a meal. 0 011 Active UBIDECARENONE (COENZYME Q10) 100 mg tab Takes 200 mg daily 0 016 Active polyethylene glycol (MIRALAX; GLYCOLAX) 17 g powder for solution Mix 17 g in liquid then take by mouth. 021 Active psyllium powd Mix 1 tsp in liquid then take by mouth once daily if needed for Constipation. 283 g 11 021 Active LORazepam (ATIVAN) 1 mg tabletIndications :Anxiety TAKE ONE TABLET BY MOUTH EVERY 6 HOURS NEEDED FOR flying HOLD until patient calls 6 tablet. 022 Active acetaminophen (TYLENOL EXTRA STRGTH) 500 mg tablet Take 1,000 mg by mouth three times daily. Take 1,000 mg by mouth 3 times daily if needed. 0 022 Active multivitamins-amanda lrav-bbiy-ieycuhr s tab tablet Take 1 Tablet by mouth at bedtime. Active Kbskm-3-TOW-EPA-F ambrose Oil (Fish OiL) 1,000 mg (120 mg-180 mg) cap Take by mouth. 0 022 Active ciclopirox solution (LOPROX) 8 % solutionIndicatio ns:Toenail fungus APPLY TOPICALLY TO AFFECTED AREA(S) AT BEDTIME. DISP NAIL KOSOVAN IF AVAILABLE. FILE NAIL AND THEN APPLY DAILY FOR 48 WKS 19.8 mL 3 023 Active calcium citrate-vitamin D3 500/300 AMANDA-D3 chew chewable tablet Chew by mouth once daily. Calcium D3: Listed asCalcium D3 (strength: 450/400) on [facility]'s medication list Active nitroglycerin (NITROSTAT) 0.4 mg sublingual tabletIndications :Coronary artery disease due to lipid rich plaque Place 1 Tablet (0.4 mg) under the tongue every 5 minutes if needed for Chest Pain. HOLD until patient calls 1 bottle 30 Tablet 4 024 Active lansoprazole (PREVACID) 30 mg capsuleIndication s:Gastroesophagea l reflux disease without esophagitis Take 1 Capsule (30 mg) by mouth once daily before a meal. for GERD 90 Capsule 4 024 Active ARIPiprazole (ABILIFY) 5 mg tabletIndications :Moderate episode of recurrent major depressive disorder (HC) Take 1 Tablet (5 mg) by mouth once daily. 90 Tablet 3 025 Active venlafaxine (EFFEXOR XR) 150 mg Extended-Release capsuleIndication s:Moderate episode of recurrent major depressive disorder (HC),CANDIDA (generalized anxiety disorder) Take 1 Capsule (150 mg) by mouth once daily in the morning. Take with 75 mg for total of 225 mg daily. 90 Capsule 3 025 Active venlafaxine (EFFEXOR XR) 75 mg cp24 Extended-Release capsuleIndication s:Moderate episode of recurrent major depressive disorder (HC),CANDIDA (generalized anxiety disorder) Take 1 Capsule (75 mg) by mouth once daily with a meal. Take with 150 mg cap for total of 225 mg daily. 90 Capsule 3 025 Active solifenacin 10 mg tablet 10 mg. Active furosemide (Lasix) 20 mg tablet 20 mg. Active lidocaine 5 % topical patchIndications: Leg pain, anterior, left Apply on dry, clean, hairless skin. Apply 1 patch to painful area of skin for up to to 12 hours within 24 hour period. 30 Patch 11 Active potassium chloride (Klor-Con 10) 10 mEq extended-release tabletIndications :Essential hypertension Take 1 Tablet (10 mEq) by mouth once daily with a meal. 90 Tablet 1 Active amLODIPine 2.5 mg tabletIndications :Essential hypertension Take 1 Tablet (2.5 mg) by mouth once daily. Take with 5 mg for total of 7.5 mg daily 90 Tablet 2 Active amLODIPine 5 mg tabletIndications :Essential hypertension Take 1 Tablet (5 mg) by mouth once daily. Take with 2.5 mg for total 7.5 mg daily 90 Tablet 2 Active lisinopriL 40 mg tabletIndications :Essential hypertension TAKE 1 TABLET BY MOUTH EVERY DAY 90 Tablet 2 025 Active atorvastatin (LIPITOR) 20 mg tabletIndications :Hyperlipidemia, unspecified hyperlipidemia type TAKE 1 TABLET (20 MG) BY MOUTH ONCE DAILY. HOLD UNTIL PATIENT CALLS 90 Tablet 2 025 Active LORazepam (ATIVAN) 0.5 mg tabIndications:Cl austrophobia Take 1 pill 1 hours before treatment repeat prior to each treatment 20 Tablet 025 Active atorvastatin (LIPITOR) 20 mg tabletIndications :Hyperlipidemia, unspecified hyperlipidemia type Take 1 Tablet (20 mg) by mouth once daily. HOLD until patient calls 90 Tablet 3 024 2024 Discontinued LORazepam 0.5 mg tabIndications:Cl austrophobia Take 1 pill 1 hours before treatment repeat prior to each treatment 34 Tablet 025 2024 Discontinued(R eorder (E-cancel not sent)) Active Problems Problem Noted Date Diagnosed Date Cerebral amyloid angiopathy 05/25/2024 Hemorrhagic stroke 07/07/2023 Overview (07/07/2023): 2017 Left lower quadrant abdominal pain 06/20/2020 Closed fracture of neck of left femur 04/15/2020 Overview (07/07/2023): hip replacement chronic pain and limp Moderate episode of recurrent major depressive d isorder 07/02/2019 Bradycardia 12/29/2016 CANDIDA (generalized anxiety disorder) 08/25/2016 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 08/25/2016 CAD S/P percutaneous coronary angioplasty 2013 Atherosclerosis of coronary artery 10/26/2012 Overview (07/19/2020): Stint Mid LAD 2013 Promus Element Plus 3 mm X 16 mm [employer] [id number] Ref Lot [id number] Overview: Stint Mid LAD 2012 Promus Element Plus 3 mm X 16 mm [employer] [id number] Ref Lot [id number] Last Assessment & Plan: LDL goal of 70 or less Assessment & Plan (08/18/2013 9:23 PM CDT): LDL goal of 70 or less Presence of stent in LAD coronary artery 013 Overview (07/19/2020): GAYE Acute blood loss anemia 10/03/2012 Thoracic compression fracture 10/03/2012 Diverticulosis of colon (without mention of hemo rrhage) 07/14/2012 Overview (07/14/2012): Colonoscopy 07/2012 Incomplete colonoscopy to 30 cm, recommend BE Elevated glucose 10/28/2011 Other and unspecified hyperlipidemia 03/11/2006 Unspecified essential hypertension 03/11/2006 Esophageal reflux 03/11/2006 Other Diseases of Nasal Cavity and Sinuses 03/11 Overview (03/11/2006): nasal congestion Resolved Problems Problem Noted Date Diagnosed Date Resolved Date Cerebral amyloid angiopathy 05/21/2022 05/19/2023 LLQ abdominal mass 06/20/2020 Closed fracture of neck of left femur 04/15/2020 07/07/2023 Closed fracture of neck of left femur 04/15/2020 07/07/2023 Overview (07/07/2023): hip replacement chronic pain and limp Social anxiety disorder 09/27/201906/10 Psychophysiological insomnia 09/27/2019 07/07/2023 Dyslipidemia 09/26/2019 07/07/2023 Elevated hemoglobin 10/26/2017 07/20/19 21 Marijuana use 09/23/2017 07/07/2023 Cerebral amyloid angiopathy 06/02/2017 07/19/2020 Multiple right-sided nontrau matic localized intracerebral hemorrhages 06/02/2017 08/05/2021 Seizure 12/29/2016 06/17/2021 Syncope 12/28/2016 07/07/2023 Mesenteric hematoma 10/03/2012 07/20/19 21 S/P small bowel resection 10/03/2012 Gout, unspecified 09/30/2010 07/07/2023 Overview (08/05/2021): Inactive was when traveling in [facility] Assessment & Plan (09/30/2010 5:53 PM CDT): Never had attack had elevated uric acid and placed on by doctor in [facility] 10 month ago 2009 none since Need for prophylactic vaccin ation with combined bfumddwvxt-rjvknzx-ncxrvtcze (DTP) vaccine 12/01/2006 07/07/2023 Migraine, unspecified, witho ut mention of intractable migraine without mention of status migrainosus 03/11/2006 07/19/2020 Encounters Date Type Department Care Team Description 09/16/2024 Travel 09/12/2024 8:00 PM CDT E-Visit [facility] [address] [place] [address] Stephany Parker MD eVisit for General E-Visit 08/24/2024 Refill [facility] [address] [facility] [address] Stehpany Parker MD Refill Request (Atorvastatin) 08/02/2024 Refill [facility] [address] [place] [address] Stephany Parker MD Refill Request (Lisinopril) 07/21/2024 Telephone [facility] [address] [place] [address] [address] Stephany Parker MD Prior Authorization (LORazepam 0.5 mg tab Approved 04/22/24-07/21/25) 07/20/2024 1:15 PM CDT Phone Office Visit [facility] [address] [place] [address] Stephany Parker MD Medication Management (Would like a prescription for Ativan and increase his Amlodipine dose) 07/20/2024 Travel 07/16/2024 Travel 06/21/2024 11:00 AM CDT Orders Only [facility] [address] [place] [address] Lab, [facility] 06/21/2024 Travel from Last 3 Months Immunizations Immunization Administration Dates Next Due COVID-19 vaccine (Pfizer-Bio NTech 30mcg/0.3mL) 12YO+ BIVALENT PF, MDV 06/24/2022 COVID-19 vaccine (Pfizer-Bio NTech 30mcg/0.3mL) 12YO+ ARMANDO-SUCROSE PF, MDV 06/27/2021,11/21/2020 COVID-19 vaccine (Pfizer-Bio NTech 30mcg/0.3mL) PF, MDV 03/27/2020 Hepatitis A (Adult) 02/17/2001,01/23/1998 Hepatitis B (Adult) 02/17/2001,02/20/1998,1997 Influenza Virus, Unspecified 12/28/2016 Influenza, IIV3 (Age 6-35 mos) 09/30/2010 Influenza, IIV3 (Age >=3 years) 10/27/19 13,10/28/2011,09/30/2010,10/30,12/01/2006,11/28/2005 Influenza, Inactivated AIIV4 (Age 65+ Years) Preserv Free 11/12/2022,11/06/2021,10/21/2019 Influenza, Inactivated IIV3 (Age 65+ Years) Preserv Free 11/11/2023,10/26/2017 Meningococcal Vaccine (Menomune) 01/23/1998 Oral Polio Vaccine 01/23/1998 Pneumococcal Poly,23-Valent (Pneumovax) 10/28/2011 Pneumococcal conj 13-Valent (Prevnar 13) 06/19/2014 Td (Age >=7 Years) 10/13/1998 Tdap 10/02/2012,12/01/2006 Yellow Fever 02/20/1998 Zoster (Shingrix-RZV, recombinant) 09/22/2018, Zoster (Zostavax-ZVL, live) 12/02/2011 Family History Medical History Relation Name Comments Depression Brother 1 Psychiatric illness Brother 1 suicide Diverticulitis Brother 2 [place]'s disease Daughter Celiac disease Daughter Diabetes Father Stroke Father Heart Disease Mother Depression Sister 1 Lorene Diverticulosis Sister 1 Lorene Sim's palsy Sister 2 Yuli Celiac disease Sister 2 Yuli Depression Sister 2 Yuli Depression Son Relation Name Status Comments Brother 1 Brother 2 Daughter Father Mother Sister 1 Lorene Sister 2 Yuli Son Social History Tobacco Use Types Packs/Day Years Used Date Smoking Tobacco: Former Cigarettes 1 10 0 02/09/1969 - 02/09/1979 Smokeless Tobacco: Never Tobacco Cessation:Counseling Given: Not Answered Alcohol Use Standard Drinks/Week Comments Not Currently 0 (1 standard drink = 0.6 oz pur e alcohol) very little PHQ-2 Answer Date Recorded PHQ-2 TOTAL SCORE 2 05/29/2024 Social Connections Answer Date Recorded Do you often feel lonely or isolated from those around you? 0 05/24/2024 Financial Resource Strain Answer Date R ecorded Difficulty of Paying Living Expenses 3 05/24/2024 Difficulty of Paying Living Expenses Not on file 05/24/2024 Food Insecurity Answer Date Recorded Do you worry your food will run out before you are able to buy more? 1 05/24/2024 Transportation Needs Answer Date Record ed Does lack of transportation keep you from medica l appointments? 1 05/24/2024 Does lack of transportation keep you from work, meetings or getting things that you need? 1 05/24/2024 Housing Stability Answer Date Recorded What is your housing situation today? 1 05/24/2024 Utilities Answer Date Recorded Do you have trouble paying f or utilities (for example, heat, electricity, water, phone)? 1 05/24/2024 Sex and Gender Information Value Date Recorded Sex Assigned at Not on file Legal Sex Male 5:24 AM [employer] Gender Identity Not on file Sexual Orientation Not on file Occupation Industry Job Start Date Job End Date retired [employer] Not on file Not on file Not on file Obstetrics History Last Filed Vital Signs Vital Sign Reading Time Taken Comments Blood Pressure 133/77 06/09/2024 10:10 AM CDT Pulse 56 06/09/2024 10:10 AM CDT Temperature 36.7 C (98.1 F) 06/09/2024 10:10 AM CDT Respiratory Rate 12 09/19/2021 7:40 AM CDT Oxygen Saturation 98% 06/09/2024 10:10 AM CDT Inhaled Oxygen Concentration - - Weight 78 kg (171 lb 14.4 oz) 06/09/2024 10:10 A M CDT Height 171.2 cm (5' 7.4) 06/09/2024 10:10 AM CD T Body Mass Index 26.6 06/09/2024 10:10 AM CDT Plan of Treatment Upcoming Encounters Date Type Department Care Team (Late st Contact Info) Description 09/21/2024 11:15 AM CDT Office Visit [facility] [address] [place] [address] Cassandra Ríos MD [address] [place] [address] 10/27/2024 10:50 AM CDT Office Visit [facility] [address] [place], [place] [id number] Amanda Chamberlain MD [address] [place], [place] [address] Health Maintenance Due Date Last Done Comments RSV vaccine for adults or (1 - 1-dose 75+ series) 12/18/2019 Tetanus booster 10/02/2022 10/02/2012, 10/2 04/2006, 10/13/1998 COVID-19 vaccine series ( season) 2024 11/11/2023, 11/29/2022, 06/24/2022, Additional history exists Medicare Wellness for age 65+ 09/16/2024, 06/24/2022, 06/17/2021, Additional history exists Influenza Vaccine (#1) 2024 , 11/12/2022, 11/06/2021, Additional history exists Depression screening for age 12+ 06/01/2025 06/01/2024, 05/30/2024, 05/29/2024, Additional history exists BMI (ht and wt on same day) for age 18+ 06/09/2025 06/09/2024, 09/16/2023, 07/07/2023, Additional history exists Hepatitis B series for 19+ Completed 02/17, 02/20/1998, 01/23/1998 Pneumococcal series for age 50+ Completed 5, 10/28/2011 Hepatitis C screening for ag e 18-79 Completed 06/14/2018 Zoster (shingles) series for age 50+ Completed 09/22/2018, 06/18/2018, 12/02/2011 Procedures Procedure Name Priority Date/Time Associated Diagnosis Comments URINALYSIS MACROSCOPIC - [facility] ONLY POC DIP (QUEST) Routine 06/21/2024 11:14 AM CDT Complicated UTI (urinary tract infection) URINALYSIS MICROSCOPIC Routine 06/21/2024 11:13 AM CDT Complicated UTI (urinary tract infection) URINE CULTURE Routine 06/21/2024 11:13 AM CDT Complicated UTI (urinary tract infection) ANTI HCV Routine 06/14/2018 9:11 AM CDT Need for hepatitis C screening test from Last 3 Months or Most Recently Relevant to Health Maintenance Results * (ABNORMAL) POCT Urinalysis Dipstick Only [[id number]] (06/21/2024 11:14 AM CDT) PH 7.0 5.0 - 8.0 [facility] SPECIFIC GRAVITY 1.015 1.001 - 1.035 [facility] GLUCOSE NEGATIVE NEGATIVE [facility] BILIRUBIN NEGATIVE NEGATIVE [facility] KETONES NEGATIVE NEGATIVE [facility] OCCULT BLOOD 1+(A) NEGATIVE [facility] PROTEIN 1+(A) NEGATIVE [facility] NITRITE NEGATIVE NEGATIVE [facility] LEUKOCYTE ESTERASE 1+(A) NEGATIVE [facility] Urine URINE SPECIMEN / Unknown 06/21/2024 11:14 AM CDT 06/21/2024 11:14 AM CDT Kristopher Cristina MD URINE Final Result [facility] [address] [place] [address], [facility] [address] [place] [address] * (ABNORMAL) URINALYSIS MICROSCOPIC [[id number]] - routine (06/21/2024 11:13 AM CDT) RBC 3-5(A) 0-2, None Seen /HPF 06/21/2024 4:35 PM CDT [facility] WBC 6-10(A) 0-2, 3-5, None Seen /HPF 06/21/2024 4:35 PM CDT [facility] BACTERIA None Seen None Seen, Rare, Few Bacteria/ HPF 06/21/2024 4:35 PM CDT [facility] EPITHELIAL CELLS None Seen None Seen, Few Epi/HPF 06/21/2024 4:35 PM CDT [facility] HYALINE CASTS 0-2 0-2, 3-5 /LPF 06/21/2024 4:35 PM CDT [facility] Urine URINE SPECIMEN / Unknown Non-Blood / Unknown 06/21/2024 11:13 AM CDT 06/21/2024 11:13 AM CDT Kristopher Cristina MD URINE Final Result Performing Organization Address [facility]/ZIP Co de Phone Number [facility] [address] [place] [address], * URINE CULTURE [[id number]] (06/21/2024 11:13 AM CDT) CULTURE No growth (<1,000 CFU/mL) 06/22/2024 3:23 PM CDT [facility] Urine URINE SPECIMEN / Unknown Non-Blood / Unknown 06/21/2024 11:13 AM CDT 06/21/2024 11:13 AM CDT Kristopher Cristina MD MICROBIOLOGY Final Result Performing Organization Address [facility] Co de Phone Number [facility] [address] [place] [address], * ANTI HCV (06/14/2018 9:11 AM CDT) HEPATITIS C ANTIBODY Non-React simi Non-React simi 06/14/2018 4:53 PM CDT [facility] Comment:Antibodies to HCV no t detected; does not exclude the possibility of exposure to HCV. Blood BLOOD SPECIMEN / Unknown Venipuncture / Unknown 06/14/2018 9:11 AM CDT 06/14/2018 9:11 AM CDT Stephany Parker MD SEND OUTS Fi nal Result Performing Organization Address City/[facility] Co de Phone Number [facility] [address] [place] [address], from Last 3 Months or Most Recently Relevant to Health Maintenance Insurance MEDICARE PART B HB ONLY [place] ONLY MEDICARE PART A HB ONLY [place] BLUE MR PB ONLY HC MEDICARE PPS Advance Directives Documents on File Type Date Recorded Patient Telegraph Service Rater Expl anation Healthcare Directive 08/04/2018 [place] 08/04/2018 Healthcare Directive 07/05/2015 3:35 PM [place], 08/08/1993 Care Teams Kaiako Kura Ka[place] Maori Relationship Specialty Start Date End Date Stephany Parker MD [address] [place] [address] PCP - General Family Practice 06/25/15 Emmanuel Palomino MD Cardiology Cardiovascular Disease 05/16/13 Mike Gordillo PsyD, LP [address] [place] [address] [address] Psychologist Psychology 07/02/19
--- OUTSIDE RECORDS SUMMARY | 2024-09-20 00:15 | XMS_ITS | Patient Health Record ---
Author Organization [facility] Address [address] [place] [address] Care Team Providers Care Junior Financial Analyst Name Role Phone Chelsea Paredes Unavailable Reason For Referral No Information Medications Medication SIG (Take, Route, Frequency, Duration) Notes Start Date End Date Status Tamsulosin HCl 0.4 MG 1 capsule Orally O nce a day; Duration: 30 day(s) 12/30/2019 Active oxyBUTYnin Chloride ER 10 MG 1 tablet Orally Once a day; Duration: 30 day(s) 01/23/2020 Active Problems Problem Type SNOMED Code ICD Code Onset Dates Problem Status W/U Status Risk Notes Problem Hyperlipidemia (84284891) Hyperlipidemia, unspecified (E78.5) Active confirmed Problem Essential hypertension (61615932) Essential (primary) hypertension (I10) Active confirmed Problem Overactive bladder (533123757) Overactive bladder (N32.81) Active confirmed Problem Lower urinary tract symptoms due to benign prostatic hypertrophy (66583817058642) Benign prostatic hyperplasia with lower urinary tract symptoms (N40.1) Active confirmed Plan Of Treatment Pending Test Test Name Order Date Urinalysis, Routine 12/23/2019 Urinalysis, Routine 12/30/2019 Insurance Providers Payer Name Payer Address Payer Phone Subscriber Number Group Number Insured Name Patient Relationship to Insured Coverage Start Date Coverage End Date [employer] [place] [address] [place] [address] [id number] Wiley Figueroa Self - patient is the insured [facility] [address] [place] [address] [id number] Wiley Figueroa Self - patient is the insured Medical (General) History Medical History History ICD Code Heart disease, hypertension, high cholesterol, stroke in 2017. No medications disclosed Surgical History Surgery Date(Month/Year) None disclosed
[2024-09-25 19:02] LABS: Testosterone, Adult Male 382 ng/dL (300-720)
== END 2024-09-19 13:38 | disposition home or self-care (01) ==
LOC: NPINS 13:37
PROVIDERS: PCP Family Medicine; Visit Provider Physician Assistant
DX: C61 Malignant neoplasm of prostate (principal)
CPT/HCPCS: 84153; 84403

== ENCOUNTER 2024-10-04 10:35 | Outpatient (CLI) | payer MEDICARE, BC, SELFPAY | END 2024-10-04 10:36 | disposition home or self-care (01) | PROVIDERS: PCP Family Medicine; Visit Provider Nurse Practitioner Family | DX: N30.41 Irradiation cystitis with hematuria (principal); C61 Malignant neoplasm of prostate; Y84.2 Radiological procedure and radiotherapy as the cause of abnormal reaction of the patient, or of later complication, without mention of misadventure at the time of the procedure | CPT/HCPCS: G0463 ==

== ENCOUNTER 2024-10-07 08:30 | Outpatient (RCR) | payer MEDICARE, BC, SELFPAY | END 2024-10-09 23:59 | disposition home or self-care (01) | LOC: WOUND 08:30 | PROVIDERS: PCP Family Medicine; Visit Provider Family Medicine | DX: N30.41 Irradiation cystitis with hematuria (principal); C61 Malignant neoplasm of prostate; Y84.2 Radiological procedure and radiotherapy as the cause of abnormal reaction of the patient, or of later complication, without mention of misadventure at the time of the procedure | CPT/HCPCS: 84153; 84403; G0277; G0463 ==

== ENCOUNTER 2024-10-12 08:30 | Outpatient (RCR) | payer MEDICARE, BC, SELFPAY | END 2024-11-08 23:59 | disposition home or self-care (01) | LOC: WOUND 08:30 | PROVIDERS: PCP Family Medicine; Visit Provider Nurse Practitioner Family | DX: N30.41 Irradiation cystitis with hematuria (principal); C61 Malignant neoplasm of prostate; Y84.2 Radiological procedure and radiotherapy as the cause of abnormal reaction of the patient, or of later complication, without mention of misadventure at the time of the procedure | CPT/HCPCS: G0277 ==

== ENCOUNTER 2024-11-16 11:15 | Outpatient (RCR) | payer MEDICARE, BC, SELFPAY | END 2024-11-16 13:49 | disposition home or self-care (01) | PROVIDERS: PCP Family Medicine; Visit Provider Family Medicine | DX: M79.605 Pain in left leg (principal); M79.652 Pain in left thigh; Z51.89 Encounter for other specified aftercare | CPT/HCPCS: 97110; 97112; 97140; 97161; G0277 ==